=== PATIENT | male | born 1945 | race Caucasian/White ===

== ENCOUNTER 2019-12-31 13:44 | Emergency (ER) | payer MEDICARE, OTHER, SELFPAY ==
--- NOTE | ~2019-12-31 | CT_ITS ---
EXAMINATION: CT brain wo [facility] EXAM DATE: 12/31/2019 14:13 INDICATION: Fall, posterior head injury. TECHNIQUE: Spiral CT of the head was performed without contrast. Axial, coronal and sagittal images were reviewed. The dose-length product (DLP) for this examination was 605.33 mGy-cm. The exposure w as tailored according to patient size, and iterative reconstruction (ASIR) was used as additional dos e reduction technique. There is no prior study for comparison. FINDINGS: There is no acute intraparenchymal hemorrhage. No evidence of intraparenchymal brain mass lesion. No evidence of acute infarction. Please note that initial head CT has limited sensitivity f or small or acute infarctions. There is mild periventricular and subcortical hypodensity, nonspecific but probably related to small vessel ischemic disease. There is moderate prominence of the sulci a nd ventricles related to cerebral atrophy. There is intracranial carotid arteriosclerosis. There a re no extra-axial collections. There is no mass effect or midline shift. The orbits are unremarkabl e. Soft tissue is unremarkable. The visualized sinuses and mastoid air cells are well aerated. IMPRESSION: 1. No acute intracranial findings. 2. Chronic age related findings. Reviewed, dictated and finalized at location B.
--- NOTE | ~2019-12-31 | XR_ITS ---
[id number] DATE: 12/31/2019 14:26 INDICATION: Fall today. Left chest pain TECHNIQUE: PA chest. 3 views of left ribs. COMPARISON: None FINDINGS: There are partially displaced fractures of the left fifth through ninth ribs. There are multiple likely old anterior left rib fractures. Additional recent or old fractures are not excluded. No pulmonary infiltrate or consolidation or pleural effusion is detected. No pneumothorax is detected. There are multiple old healed right rib fractures. Status post sternotomy. Aortic calcification. Heart size is within normal limits. No pulmonary infiltrate or consolidation, pulmonary vascular congestion or pleural effusion. IMPRESSION: Multiple recent left rib fractures Reviewed, dictated and finalized at Location [facility]. Reviewed, dictated and finalized at location A.
--- NOTE | ~2019-12-31 | XR_ITS ---
EXAMINATION: XR elbow LT min 3V EXAM DATE: 12/31/2019 14:26 INDICATION: Initial encounter following injury, with pain of the left elbow. TECHNIQUE: Left elbow frontal, lateral with flexion, and oblique projections obtained and reviewed. There is no prior study for comparison. FINDINGS: Left elbow anterior humeral line intact. There are no acute fractures or dislocations debbie ntified. There is no subcutaneous gas. Some faint vascular calcifications. 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 There is soft tissue swelling over the elbow posteriorly. There are no rad iopaque foreign bodies. IMPRESSION: 1. Left elbow exam without acute osseous findings. Reviewed, dictated and finalized at location B.
--- NOTE | 2019-12-31 13:52 | ED.FALL ---
HPI - Fall General Chief Complaint: Fall Stated Complaint: fell out of tree hit head Time Seen by Provider: 12/31/19 13:52 Source: patient and RN notes reviewed Mode of arrival: ambulatory Limitations: no limitations History of Present Illness HPI Narrative: Patient states that he tripped over some items in the garage onto his left side. His ribs hurt and he did hit the left forehead. He also complains of his left elbow with some bleeding from that area. He did not fall out of a tree. complaint: fall Onset (ago): minute(s) (15) Fall from: standing Fall witnessed: no Place fall occurred: home Loss of consciousness: none Symptoms prior to fall: none Context: tripped/slipped Location of injury: head and chest Location of injury - extremities: Left: elbow Severity: severe Quality: sharp Associated symptoms (after fall): denies Related Data Home Medications Medication Instructions Recorded Confirmed aspirin 81 mg PO DAILY 12/31/19 12/31/19 atenolol 25 mg PO DAILY 12/31/19 12/31/19 atorvastatin 40 mg PO HS 12/31/19 12/31/19 glipizide 5 mg PO BID 12/31/19 12/31/19 hydrochlorothiazide 25 mg PO BID 12/31/19 12/31/19 losartan 50 mg PO DAILY 12/31/19 12/31/19 metformin 1,000 mg PO BID 12/31/19 12/31/19 Allergies Allergy/AdvReac Type Severity Reaction Status Date / Time amoxicillin [From Amoxil] Allergy Unknown Verified 12/31/19 14:10 Review of Systems Review of Systems: All systems reviewed & are unremarkable except as noted in HPI and below PMFSH Past Medical History Medical History (Updated 12/31/19 @ 15:03 by Sam Aranda MD) Hyperlipidemia Hypertension Type 2 diabetes mellitus Surgical History Surgical History (Updated 12/31/19 @ 14:22 by Sam Aranda MD) H/O knee surgery right x2 History of heart bypass surgery Social History Social History (Updated 12/31/19 @ 14:23 by Sam Aranda MD) Smoking packs per day: 1.5 Smoking cigarettes per day: 30.0 Smoking status: Current every day smoker Alcohol intake: current Drinks per week: 20 Substance use: never Gender identity (if verbalized by the patient): Male Exam Const: General: healthy appearing and no acute distress Nutritional Appearance: well nourished and obese centrally obese Orientation/consciousness: patient oriented x3 HENMT: Head: normal to inspection, No palpable skull fracture present and no lacerations Head images: 1. Mildly tender no abrasion Ears: external ears normal Eyes: Conjunctivae: conjunctivae normal Pupils: Equal, round and reactive pupils present EOM: EOMs intact bilaterally Neck: Neck: normal visual inspection, full ROM, trachea midline and nontender Chest: Chest palpation & inspection: tenderness rib (severe) left anterior-axillary line involving the 6th rib, involving the 7th rib, involving the 8th rib and involving the 9th rib Resp: Effort & Inspection: normal respiratory effort Auscultation: clear to auscultation bilaterally Cardio: Rate: regular rate Rhythm: regular rhythm GI: Auscultation: normal bowel sounds Back/Spine/Pelvis: Thoracic/Lumbar Spine: thoraco-lumbar ROM normal Skin: General skin exam: normal color Rashes: no rashes Wounds: wounds noted (skintear on left elbow) Neuro: General: patient oriented x3, moves all extremities and no focal motor deficits Speech: normal speech Gait exam (Neuro): Normal gait present Extrem: Left upper extremity: elbow/forearm tenderness (Moderate) of the olecranon, of the lateral epicondyle and of the radial head Psych: Appearance: grossly normal and well kempt Mental Status: mental status grossly normal Affect: normal affect Attitude: cooperative Thought content: Yes Normal thought content present MDM - Fall Medical Records Attestation: I reviewed the patient's medical records. Discharge Plan Discharge Clinical Impression: Fracture of rib Qualifiers: Encounter type: initial encounter Rib fracture type: multiple rib
[2019-12-31 14:05] VITALS: BP 161/86; PULSE 69; RESP 20; TEMP 36.7; O2SAT 96
[2019-12-31] MEDS: HYDROmorphone HCL INJ (*CRX) 2 MG/ML VIAL 1 MG IM (15:05)
--- NOTE | 2019-12-31 16:03 | PC.NURSE ---
1545 pt teaching completed on incentive spirometer to breath in 4 x an hour trying to reach 2200 pt demonstrated and will work on it at home
[2019-12-31 16:07] VITALS: BP 173/81; PULSE 69; RESP 20; O2SAT 96
== END 2019-12-31 16:00 | disposition home or self-care (01) ==
PROVIDERS: Emergency Provider Emergency Medicine
DX: S22.42XA Multiple fractures of ribs, left side, initial encounter for closed fracture (principal); W01.0XXA Fall on same level from slipping, tripping and stumbling without subsequent striking against object, initial encounter; E78.5 Hyperlipidemia, unspecified; I10 Essential (primary) hypertension; E11.9 Type 2 diabetes mellitus without complications; F17.200 Nicotine dependence, unspecified, uncomplicated
CPT/HCPCS: 70450; 71101; 73080; 96372; 99283; 99284; J1170